=== PATIENT | male | born 1940 | race Caucasian/White ===

== ENCOUNTER 2016-10-24 17:41 | Observation (INO) | payer MEDICARE ==
[~2016-10-24] VITALS: Ht 177.8 cm; Wt 110.4 kg
[2016-10-24] MEDS ORDERED: ASPIR-TRIN325 MG PO (17:55)
[2016-10-24] MEDS ORDERED: MULTAQ400 MG PO (17:56)
--- NOTE | 2016-10-24 21:00 | NUR ---
PT ARRIVED TO THE FLOOR VIA STRETCHER. PT ABLE TO STAND AND WALK TO THE BATHROOM WITH 1 PA. PT REPORTS THAT HE IS "ALWAYS" DIZZY WHEN HE STANDS. PT ASSISTED BACK TO BED. PT DENIES PAIN OR NAUSEA. ALERT AND ORIENTED. ORTHOSTATIC VS COMPLETED. PT REPORTS BEING HUNGRY. SOUP AND COTTAGE CHEESE BROUGHT TO PT ALONG WITH WATER. PT STATES THAT SOUP AND WATER "TASTE AWFUL". PT DENIES NEEDS AT THIS TIME. CALL LIGHT WITHIN REACH.
--- NOTE | 2016-10-24 21:46 | EKG ---
[facility] [address] [place] [address] Signed Atrial flutter with variable AV block Nonspecific ST and T wave abnormality Abnormal ECG No previous ECGs available Confirmed by BRIAN YUSUF MD ([id number] on 10/24/2016 9:46:18 PM Electronically Signed By: BRIAN YUSUF MD 10/24/16 2146 PATIENT NAME: MARIANA MENDOZA [facility] [place] Electrocardiogram DATE OF : 36 PHYSICIAN: BRIAN YUSUF MD REPORT #: [id number] REPORT IS CONFIDENTIAL AND NOT TO BE RELEASED WITHOUT AUTHORIZATION
--- NOTE | 2016-10-24 23:26 | NUR ---
PT UP TO USE THE BATHROOM WITH ASSISTANCE, ABLE TO HAVE BM. PT STATES THAT A FRIEND IS BRINGING HIS MEDICATION FROM HOME. PT DENIES OTHER NEEDS AT THIS TIME. CALL LIGHT WITHIN REACH.
--- NOTE | 2016-10-25 01:00 | NUR ---
PT RESTING IN BED WITH EYES CLOSED. RESPIRATIONS EVEN AND UNLABORED. PT APPEARS TO BE SLEEPING. CALL LIGHT WITHIN REACH.
--- NOTE | 2016-10-25 02:10 | NUR ---
PT RESTING WITH EYES CLOSED. RESPIRATIONS EVEN AND UNLABORED. APPEARS TO BE SLEEPING. PT WAKES EASILY, REMAINS DROWSY. DENIES PAIN. PT STATES "NO, JUST SLEEPING", WHEN ASKED ABOUT DIZZINESS, LIGHTHEADEDNESS, OR NAUSEA. ASSESSMENT REMAINS UNCHANGED FROM PREVIOUS. TELE IN PLACE. PT DENIES OTHER NEEDS. CALL LIGHT WITHIN REACH.
--- NOTE | 2016-10-25 03:15 | NUR ---
pt o2 sat down to 88% on ra. pt stated upon admission that he knows that he has sleep apnea but will not wear a cpap because he "does not like it". o2 placed at 1lpm, o2 sat up to 96%. call light within reach.
--- NOTE | 2016-10-25 05:17 | NUR ---
PT CALLS TO USE THE BATHROOM, TOLERATED WALKING TO THE BATHROOM WELL WITH 1 PA. REINFORCED EDUCATION REGARDING CALLING FOR HELP. PT STATES UNDERSTANDING. PT ASSESSMENT COMPLETED. PT DENIES DIZZINESS OR LIGHTHEADEDNESS. DENIES PAIN OR NAUSEA. ASSESSMENT OTHERWISE UNCHAGED FROM PREVIOUS ASSSESSMENT.
--- NOTE | 2016-10-25 05:19 | NUR ---
PT RESTED WELL THROUGHOUT THE NIGHT. DENIES DIZINESS/LIGHTHEADEDNESS, PAIN, OR NAUSEA. NO SYCOPAL EPISODES. TELE # [address], SINUS RHYTHM WITH HR IN 60'S-70'S. LR @100. FIELD START IV, PT DIFFICULT IV START. 1PA TO SBA. SCDS. CARDIAC DIET.
--- NOTE | 2016-10-25 09:05 | NUR ---
PT WAS ON 1L O2 VIA NC WHILE ASLEEP. TOOK PT OFF O2 ONCE PT AWOKE. CONTINOUS PULSE OX ON.
== END 2016-10-25 12:20 | disposition home or self-care (01) ==
LOC: ED 17:41 → MS 17:42
PROVIDERS: ADMIT Internal Medicine
DX: E86.0 Dehydration (principal); N17.9 Acute kidney failure, unspecified; I25.10 Atherosclerotic heart disease of native coronary artery without angina pectoris; F43.9 Reaction to severe stress, unspecified; I25.2 Old myocardial infarction; R03.0 Elevated blood-pressure reading, without diagnosis of hypertension; I48.0 Paroxysmal atrial fibrillation; I48.92 Unspecified atrial flutter; Z23 Encounter for immunization; Z95.3 Presence of xenogenic heart valve; Z79.82 Long term (current) use of aspirin; Z79.899 Other long term (current) drug therapy; Z95.5 Presence of coronary angioplasty implant and graft
CPT/HCPCS: 36415; 71020; 80048; 80053; 84484; 85025; 90662; 93005; 93010; 96360; 99285; G0008; G0378; J7030; J7120